=== PATIENT | male | born 1935 | race Caucasian/White ===

== ENCOUNTER 2018-03-12 11:37 | Observation (INO) | payer MEDICARE, BC ==
--- NOTE | 2018-03-12 12:48 | ED ---
Palpitations / Dysrhythmia - HPI Summary HPI Summary: An 83 y/o male presents to [facility] with a chief complaint of atrial fibrillation. The patient was at his PCP where he had an EKG done and was referred to the ED for further evaluation. He also endorses a lingering cough sometimes with phlegm and fatigue. He reports that "this is not my normal voice". He has a Hx of bronchitis. He denies Fever, Chills, Erythema (eyes), Sore throat, Chest pain , Shortness of Breath, Abdominal pain, Vomiting, Nausea, Dysuria, Hematuria, Myalgia, Edema, Rash, lightheadedness and Dizziness.The patient seems active stating that he has been skiing. - History of Current Complaint Chief Complaint: EDDysrhythmPalp Time Seen by Provider: 03/12/18 11:52 Hx Obtained From: Patient Onset/Duration: Sudden Onset Severity Initially: Mild Severity Currently: Mild Character: Irregular Aggravating: Exertion Alleviating: Nothing Associated Signs & Symptoms: Negative - SOB, Dizzy, Lightheadedness - Allergy/Home Medications Allergies/Adverse Reactions: Allergies Allergy/AdvReac Type Severity Reaction Status Date / Time No Known Allergies Allergy Verified 03/12/18 11:43 Home Medications: Home Medications Atorvastatin* [Lipitor*] 20 mg PO QPM 03/12/18 [History Confirmed 03/12/18] predniSONE TAB* [Deltasone TAB*] 5 mg PO DAILY 03/12/18 [History Confirmed 03/12] PMH/Surg Hx/FS Hx/Imm Hx Endocrine/Hematology History: Denies: Hx Diabetes, Hx Thyroid Disease Cardiovascular History: Reports: Hx Hypercholesterolemia Denies: Hx Hypertension Respiratory History: Denies: Hx Asthma, Hx Chronic Obstructive Pulmonary Disease (COPD) GI History: Denies: Hx Ulcer - Surgical History Surgery Procedure, Year, and Place: Left HIP replacement 7 years ago. Victrectomy - 12 years ago. Cataract surgery Infectious Disease History: No Infectious Disease History: Denies: Hx Clostridium Difficile, Hx Hepatitis, Hx Human Immunodeficiency Virus (HIV), Hx of Known/Suspected MRSA, Hx Shingles, Hx Tuberculosis, Hx Known/ Suspected VRE, Hx Known/Suspected VRSA, History Other Infectious Disease, Traveled Outside the [place] in Last 30 Days - Family History Known Family History: Positive: Other - cancer Negative: Hypertension, Diabetes - Social History Alcohol Use: Daily Alcohol Amount: 1 beer/glass of wine daily Substance Use Type: Reports: None Smoking Status (MU): Former Smoker Review of Systems Positive: Fatigue. Negative: Fever, Chills Negative: Erythema Negative: Sore Throat Negative: Chest Pain Positive: Cough. Negative: Shortness Of Breath Negative: Abdominal Pain, Vomiting, Nausea Negative: dysuria, hematuria Negative: Myalgia Negative: Rash Neurological: Negative - dizziness, lightheadedness All Other Systems Reviewed And Are Negative: Yes Physical Exam - Summary Physical Exam Summary: Constitutional: Well-developed, Well-nourished, Alert. (-) Distressed Skin: Warm, Dry HENT: Normocephalic; Atraumatic Eyes: Conjunctiva normal Neck: Musculoskeletal ROM normal neck. (-) JVD, (-) Stridor, (-) Tracheal deviation Cardio: Irregularly irregular HR, Heart sounds normal; Intact distal pulses; The pedal pulses are 2+ and symmetric. Radial pulses are 2+ and symmetric. (-) Murmur Pulmonary/Chest wall: Effort normal. (-) Respiratory distress, (-) Wheezes, (-) Rales Abd: Soft, (-) epigastric tenderness, (-) Distension, (-) Guarding, (-) Rebound Musculoskeletal: (-) Edema Lymph: (-) Cervical adenopathy Neuro: Alert, Oriented x3 Psych: Mood and affect Normal Triage Information Reviewed: Yes Vital Signs On Initial Exam: Initial Vitals Temp Pulse Resp BP Pulse Ox 98.3 F 136 16 156/101 96 03/12/18 11:39 03/12/18 11:39 03/12/18 11:39 03/12/18 11:39 03/12/18 11:39 Vital Signs Reviewed: Yes Diagnostics - Vital Signs Vital Signs Temp Pulse Resp BP Pulse Ox 03/12/18 12:24 102 21 144/101 97 03/12/18 12:00 104 22 96 03/12/18 11:54 101 20 145/101 96 03/12/18 11:51 104 25 97 03/12/18 11:39 98.3 F 136 16 156/101 96 - Laboratory Result Diagrams: 03/12/18 12:48 03/12/18 12:48 Lab Statement: Any lab studies that have been ordered have been reviewed, and results considered in the medical decision making process. - Radiology CXR Radiology Interpretation Completed By: Radiologist Summary of Radiographic Findings: Cardiomegaly without evidence for pulmonary edema. No evidence for pneumonia. Elevated lung volumes suggest potential obstructive lung disease. ED physician has reviewed this imaging report. - EKG 11:47 Cardiac Rate: Other Rate - Atrial flutter with predominant 3:1 AV block at 105 bpm EKG Rhythm: Atrial Flutter Summary of EKG Findings: no STEMI. 16:25 Cardiac Rate: Other Rate - Atrial Flutter at 76 bpm. EKG Rhythm: Atrial Flutter Summary of EKG Findings: Atrial flutter with predominant 4:1 AV block. Course/Dx - Course Course Of Treatment: An 83 y/o male presents to [facility] with a chief complaint of atrial fibrillation. The patient was at his PCP where he had an EKG done and was referred to the ED for further evaluation. He also endorses a lingering cough sometimes with phlegm and fatigue. He reports that "this is not my normal voice". He has a Hx of bronchitis. He denies Fever, Chills, Erythema (eyes), Sore throat, Chest pain, Shortness of Breath, Abdominal pain, Vomiting, Nausea, Dysuria, Hematuria, Myalgia, Edema, Rash, lightheadedness and Dizziness. The patient seems active stating that he has been skiing. His PE was remarkable with an irregularly irregular HR. His EKG showed Atrial flutter with predominant 3:1 AV block at 105 bpm with no STEMI. CXR impression: Cardiomegaly without evidence for pulmonary edema. No evidence for pneumonia. Elevated lung volumes suggest potential obstructive lung disease. His troponin I was remarkable at 0.12. In the ED course the patient was given aspirin PO and Metoprolol Tartrate PO. His repeat EKG showed Atrial flutter at 76 bpm with predominant 4:1 AV block. Dx: elevated troponin, rapid a-fib. Patient will be admitted to Dr. Jim, hospitalist, and is agreeable with this plan. - Diagnoses Provider Diagnoses: Elevated troponin, Rapid atrial fibrillation - Physician Notifications Discussed Care Of Patient With: Anabela Jim Time Discussed With Above Provider: 14:30 Instructed by Provider To: Admit As Observation - Critical Care Time Critical Care Time: 30-74 min - 45 mins discussing advanced directives. Discharge - Sign-Out/Discharge Documenting (check all that apply): Patient Departure - Admit - Discharge Plan Condition: Fair Disposition: ADMITTED TO [facility] - Attestation Statements Document Initiated by Scribe: Yes Documenting Scribe: Dallas Carpenter Provider For Whom Scribe is Documenting (Include Credential): Fabrice Mae MD Scribe Attestation: IDallas, scribed for Fabrice Mae MD on 03/12/18 at 2255. Status of Scribe Document: Ready
[2018-03-12 13:11] LABS: ABS Basophils 0 10^3/ul (0-0.2); ABS Eosinophils 0 10^3/ul (0-0.6); ABS Lymphocytes 1.2 10^3/ul (1.0-4.8); ABS Monocytes 0.5 10^3/ul (0-0.8); ABS Neutrophils 5.1 10^3/ul (1.5-7.7); ABS Nucleated RBC 0 10^3/ul; Eosinophil % 0.5 %; Hematocrit 40 % (42-52); Hemoglobin 13.7 g/dl (14.0-18.0); Lymphocyte % 17.2 %; Mean Corpuscular HGB Conc 34 g/dl (31-36); Mean Corpuscular Hemoglobin 33 pg (27-31); Mean Corpuscular Volume 98 fL (80-94); Mean Platelet Volume 8.7 fL (7.4-10.4); Nucleated Red Blood Cells % 0.2; Platelet Count 261 10^3/ul (150-450); Red Blood Count 4.12 10^6/ul (4.00-5.40); Red Cell Distribution Width 13 % (10.5-15); White Blood Count 6.9 10^3/ul (3.5-10.8)
[2018-03-12] MEDS ORDERED: Aspirin 81 mg CHEW TAB* 81 MG TAB.CHEW PO ONE (13:40)
[2018-03-12] MEDS ORDERED: Metoprolol Tartrate TAB* 25 MG PO ONE (13:43)
[2018-03-12] MEDS ORDERED: Acetaminophen TAB* 325 MG PO PRN (16:35)
[2018-03-12] MEDS ORDERED: Albuterol 2.5 MG/3 ML NEB.SOL* (0.083%) INH PRN (16:35)
[2018-03-12] MEDS ORDERED: Atorvastatin* 20 MG TAB PO SCH (18:00)
[2018-03-12] MEDS: Metoprolol Tartrate TAB* 25 MG PO SCH (19:46)
[2018-03-12] MEDS: Rivaroxaban TAB(*) 20 MG TAB PO SCH (19:46)
--- NOTE | 2018-03-12 23:46 | HP ---
CC: Dr. Dillard * HISTORY AND PHYSICAL: DATE OF ADMISSION: 03/12/18 PROVIDER: Deedee Monroe NP PRIMARY CARE PROVIDER: Dr. Dillard. ATTENDING PHYSICIAN: Anabela Jim DO * (dictated by Deedee Monroe NP) CHIEF COMPLAINT: Rapid atrial fibrillation. HISTORY OF PRESENT ILLNESS: Mr. Collins is an 83-year-old male with a past medical history significant for hyperlipidemia and GERD, who presented to the emergency room from his doctor's office with new onset atrial fibrillation. The patient denies any dizziness or lightheadedness. Denies any palpitations. Denies any shortness of breath at this time. The patient reports that he originally went to his primary care office today for a cough and during the visit they did an electrocardiogram and found that he was in atrial fibrillation , so they sent him to the emergency room for further evaluation. The patient reports that since the beginning of this fall, he has been experiencing shortness of breath with exertion and increased fatigue. He does report that when raking leaves, he would have to stop due to his exertional shortness of breath. He does report that he also stopped hiking up hills as he was getting short of breath with exertion when hiking hills. The patient does report that he walked approximately half a mile a day and does not have any exertional shortness of breath from walking on flat even ground. The patient denies any recent sick contacts. He denies any fever or chills. He denies any chest pain. He denies any hemoptysis. He denies any nocturnal dyspnea or orthopnea. No nausea, vomiting, or diarrhea. No abdominal pain. No hematuria or dysuria. No focal weakness or sensory loss. Given the finding of new onset atrial fibrillation, we were asked to see and evaluate him by the emergency room doctor. PAST MEDICAL HISTORY: Significant for: 1. Hyperlipidemia. 2. GERD. PAST SURGICAL HISTORY: Left hip arthroplasty. MEDICATIONS: Home medications include: 1. Ibuprofen 400 mg p.o. daily. 2. Atorvastatin 20 mg p.o. daily. 3. Omeprazole 40 mg p.o. daily. 4. ProAir 108 one puff daily. ALLERGIES TO MEDICATIONS: No known drug allergies. FAMILY HISTORY: Father with a history of an SD who at the age of 81 from an SD. No reported history of diabetes within the family. Sister with the history, age 53, from non-Hodgkin's lymphoma. SOCIAL HISTORY: The patient reports that he quit smoking approximately 35 years ago. He reports he drinks 1 to 2 drinks daily. Denies any illicit drug use. He is . Surrogate decision maker in the event he is unable to make his own decisions is his daughter, Dede Garcia. He is a full code. REVIEW OF SYSTEMS: There was no documented fever. There has been no significant weight change. No double vision. No ear discharge. No rhinorrhea. No sore throat. The patient does report a cough for approximately 2 weeks. He denies any chest pain. Denies any orthopnea. Denies any palpitations. Denies any lightheadedness or dyspnea. Denies any nocturnal dyspnea. Denies any abdominal pain, nausea, vomiting, or diarrhea. Denies any dysuria or urinary frequency. Denies any seizures or loss of consciousness. No pruritus or skin ulcerations. He denies any focal weakness or sensory losses. Review of 14 systems were completed, all others negative. PHYSICAL EXAMINATION GENERAL: At this time, Mr. Collins is an 83-year-old gentleman with the past medical history significant for hyperlipidemia and GERD, who presented to the emergency room from his primary care office with new onset rapid atrial fibrillation with rapid ventricular response. He was given metoprolol 25 mg p.o. in the emergency room and his rate decreased to the 70s and 80s, continues to be in atrial flutter at a 3:1 rate. Given his new onset atrial fibrillation , we were asked to admit him. VITAL SIGNS: Blood pressure was 135/87, heart rate was 78, respirations 18, O2 saturation 98%, temperature 98.6. HEENT: Head is atraumatic and normocephalic. Eyes: EOMs are intact. Sclerae anicteric and not pale. Oral mucosa appears to be moist. NECK: Supple. LUNGS: Clear to auscultation bilaterally. No wheezes, rales, or rhonchi. CARDIAC: S1 and S2. Irregular rate and rhythm. No murmurs, rubs, or gallops. ABDOMEN: Soft and nontender. Bowel sounds are present x4. EXTREMITIES: Pulses are +2 bilaterally. There is no edema. He is able to move all 4 extremities with 5/5 strength. NEUROLOGIC: He is awake, alert, oriented x3. Tongue is midline. Speech is clear. There are no gross focal deficits. SKIN: Intact. DIAGNOSTIC STUDIES/LAB DATA: WBCs are 6.9, RBCs 4.12, hemoglobin 13.7, hematocrit was 40, platelet count was 261,000. Sodium 137, potassium 4.2, chloride 106, carbon dioxide was 25, anion gap of 6, BUN was 18, creatinine 1.03. Glucose was 105. Lactic acid 1.3. Calcium was 9.6. Magnesium was 1.8. Total bilirubin was 1.0. ASTs 21, ALTs were 17, alkaline phosphatase was 79. Troponin initially was 0.12, repeat troponin was 0.02. TSH was 2.10. Free T4 was 0.94. He had a chest x-ray. Radiologist's impression: Cardiomegaly without evidence of pulmonary edema. No evidence of pneumonia. Elevated lung volumes suggest potential obstructive lung disease. He had an electrocardiogram on arrival which showed atrial flutter at a rate of 105. He had a repeat electrocardiogram at 1625 which showed atrial flutter at a rate of 76. ASSESSMENT AND PLAN: Mr. Collins is an 83-year-old male with the past medical history significant for hyperlipidemia and gastroesophageal reflux disease who presented to the emergency room from his doctor's office for evaluation of new onset atrial fibrillation. He will be admitted under observation for: 1. Atrial fibrillation with rapid ventricular response. He does not have an acute underlying cause. His TSH was within normal limits. He has no pneumonia on x-ray or symptoms of pneumonia at this time. His magnesium level is 1.8, it is mildly low. We will replace his magnesium. We will repeat an EKG in the morning. I will continue to monitor his troponin. We will get a transthoracic echocardiogram in the morning to rule out any valvular abnormality or structural abnormalities. I did discuss with Mr. Collins the need for anticoagulation. His KAREN-VASc score is 2 giving him a 2.9% risk of stroke which is classified as moderate to high risk. His HAS-BLED score is 2 giving him a 4.1% risk of bleeds with 1.88 bleeds per 100 which is a moderate risk of bleeding. I did discuss with the patient the need to discontinue daily alcohol intake as this could increase his risk of bleeding as well. The patient was advised of different forms of anticoagulation and has opted to be placed on Xarelto. The patient will be placed on Xarelto 20 mg p.o. daily. We will start that this evening. I would recommend that he follow up with Cardiology as an outpatient for further management of his atrial fibrillation. Given that the patient has been having increased fatigue and exertional shortness of breath, he may require cardiac stress test in the future. I also did discuss anticoagulation with his son and daughter who are in agreement with placing him on anticoagulation. Again, the patient was advised about stopping daily intake of alcohol and advised against downhill skiing due to the increased risk of fall and bleeds due to fall injury. 2. Hyperlipidemia. He will continue on his atorvastatin 20 mg p.o. daily. 3. Gastroesophageal reflux disease. He will continue on omeprazole 40 mg p.o. daily. 4. FEN. He can have a heart-healthy, no caffeine diet. 5. DVT prophylaxis. He will be placed on Xarelto. 6. Code status. He is a full code. 7. Disposition: He will be placed in observation on telemetry. TIME SPENT: Time spent on this admission was 60 minutes, greater than half that time was spent with the patient, discussing discharge plans and instructions. Greater than half of that time was spent reviewing my history and physical and implementing my plan of care. I have discussed with my attending, Dr. Anabela Jim; she is in agreement with my plan. DEEDEE MONROE, [place] [id number]/[facility] #: [id number] REGINA
[2018-03-13] MEDS ORDERED: Magnesium Sulfate 2 GM IV* 2 GM/50 ML BAG IVPB ONE (00:04)
[2018-03-13 05:46] LABS: ABS Basophils 0 10^3/ul (0-0.2); ABS Eosinophils 0.1 10^3/ul (0-0.6); ABS Monocytes 0.6 10^3/ul (0-0.8); ABS Neutrophils 2.8 10^3/ul (1.5-7.7); ABS Nucleated RBC 0 10^3/ul; Eosinophil % 1.4 %; Hematocrit 41 % (42-52); Hemoglobin 13.8 g/dl (14.0-18.0); Lymphocyte % 35.4 %; Mean Corpuscular HGB Conc 34 g/dl (31-36); Mean Corpuscular Hemoglobin 34 pg (27-31); Mean Corpuscular Volume 99 fL (80-94); Mean Platelet Volume 8.3 fL (7.4-10.4); Nucleated Red Blood Cells % 0.1; Platelet Count 257 10^3/ul (150-450); Red Blood Count 4.11 10^6/ul (4.00-5.40); Red Cell Distribution Width 13 % (10.5-15); White Blood Count 5.6 10^3/ul (3.5-10.8)
[2018-03-13 06:04] LABS: EGFR Non-African American 63.3 (>60)
[2018-03-13] MEDS ORDERED: Omeprazole CAP* 20 MG PO SCH (07:30)
[2018-03-13] MEDS: Metoprolol Tartrate TAB* 25 MG PO SCH (08:47)
[2018-03-13] MEDS: Rivaroxaban TAB(*) 20 MG TAB PO SCH (08:47)
[2018-03-13] MEDS ORDERED: Albuterol HFA INHALER* 8 gm MDI INH SCH (09:00)
--- NOTE | 2018-03-13 14:27 | ECHO ---
Patient: STEVEN LACEY [facility] Rec#: [id number] : 1935 Date: 03/13/2018 Age: 83y Height: 177.8 cm / 70.0 in Weight: 77.11 kg / 170.0 lbs Sex: M BSA: 1.95 Room#: 435 Admit Date#: 03/12/2018 Type: Inpatient Referring: Mike Bain Reading: Kenn Varela DO [employer] Designer: Mary Copeland RDCS CC: Joon Dillard MD Transthoracic Echocardiogram Indication: Shortness of breath. BP: 128/86 HR: 62 Rhythm: NSR with PACs Findings History: HLD, GERD. Technical Comments: The study quality is fair. Completed at 1230. Left Ventricle: The left ventricular chamber size is normal. Mild concentric left ventricular hypertrophy is observed. Global left ventricular wall motion and contractility are within normal limits. There is normal left ventricular systolic function. The estimated ejection fraction is 55-60%. The assessment of diastolic function is non-diagnostic. Left Atrium: The left atrium is moderately dilated. Right Ventricle: The right ventricular cavity size is normal. The right ventricular global systolic function is low normal. Right Atrium: The right atrium is mild to moderately dilated. Aortic Valve: The aortic valve is trileaflet. The aortic valve leaflets are moderately thickened. Mild aortic leaflet calcification is visualized. Systolic excursion of the aortic valve cusps is reduced. There is evidence of aortic sclerosis without stenosis. There is trace to mild aortic regurgitation. There is no evidence of aortic stenosis. Mitral Valve: Mild mitral annular calcification present. The mitral valve leaflets are mildly thickened. There is mild mitral regurgitation. There is no evidence of mitral stenosis. Tricuspid Valve: The tricuspid valve leaflets are normal. There is mild tricuspid regurgitation. No pulmonary hypertension is noted. There is no tricuspid stenosis. Pulmonic Valve: The pulmonic valve appears normal. There is a trace pulmonic regurgitation. There is no pulmonic stenosis. Pericardium: There is no significant pericardial effusion. Aorta: There is mild dilatation of the ascending aorta. There is no dilatation of the aortic arch. The aortic root is normal in size. Pulmonary Artery: The main pulmonary artery is not well visualized. Venous: The inferior vena cava appears normal in size. There is a greater than 50% respiratory change in the inferior vena cava dimension. Conclusions The left ventricular chamber size is normal. Mild concentric left ventricular hypertrophy is observed. Global left ventricular wall motion and contractility are within normal limits. There is normal left ventricular systolic function. The estimated ejection fraction is 55-60%. The left atrium is moderately dilated. The right ventricular cavity size is normal. The right ventricular global systolic function is low normal. There is evidence of aortic sclerosis and calcification without any significant stenosis by doppler evaluation There is mild dilatation of the ascending aorta. Patient appears to be in atrial flutter at time of examination None prior for comparison at time of interpretation Measurements Name Value Normal Range RVIDd (AP) 2D 3 cm (0.9 - 2.6) RVDdMajor (2D) 3.6 cm (2.2 - 4.4) RAd ISD 4CH 5.9 cm (3.4 - 4.9) RA (A4C)W 5 cm (2.9 - 4.6) IVSd (2D) 1.2 cm (0.6 - 1) LVPWd (2D) 1.2 cm (0.6 - 1) LVIDd (2D) 4 cm (3.6 - 5.4) LVIDs (2D) 2.5 cm - LV FS (2D) 24 % (25 - 45) Aortic Annulus 2.2 cm (1.4 - 2.6) Ao root diameter (2D) 3 cm (2.1 - 3.5) Ascending Ao 4 cm (2.1 - 3.4) Aortic arch 2.9 cm (1.8 - 3.4) LA dimension (AP) 2D 4.3 cm (2.3 - 3.8) LAd ISD 4CH 5.9 cm (2.9 - 5.3) LA ISD 4CH W 4.4 cm (2.5 - 4.5) Name Value Normal Range LA ESV SP 4CH (A/L) 80 ml - LA ESV SP 2CH (A/L) 81 ml - LA ESV BP (A/L) 81 ml - LA ESV BP (A/L) index 41 ml/m2 - LA ESV SP 4CH (MOD) 72 ml - LA ESV SP 2CH (MOD) 75 ml - Name Value Normal Range MV E-wave Vmax 0.77 m/sec - MV deceleration time 168 msec - MV A-wave Vmax 0.52 m/sec - MV E:A ratio 1.49 ratio - LV septal e' Vmax 0.08 m/sec - LV lateral e' Vmax 0.09 m/sec - LV E:e' septal ratio 9.63 ratio - LV E:e' lateral ratio 8.56 ratio - Name Value Normal Range AV Vmax 1.6 m/sec - AV VTI 26.76 cm - AV peak gradient 9.79 mmHg - AV mean gradient 4.61 mmHg - LVOT diameter 2 cm - LVOT Vmax 0.66 m/sec - LVOT VTI 12.9 cm - LVOT peak gradient 1.75 mmHg - LVOT mean gradient 1.03 mmHg - AR PHT 725 msec - RAHEEM Vmax 0.9 m/sec - Name Value Normal Range MR Vmax 5.1 m/sec - MR VTI 159.7 cm - MR flow (PISA) 43.6 ml/sec - MR ERO 0.09 cm2 - MR PISA radius 0.4 cm - MR alias Vmax 43.29 cm/sec - Name Value Normal Range TR Vmax 2.3 m/sec - TR peak gradient 21 mmHg - RAP 3 mmHg - RVSP 24 mmHg - IVC diameter 1.32 cm - Name Value Normal Range PV Vmax 1.05 m/sec - PV peak gradient 4.49 mmHg -
[2018-03-13 14:35] VITALS: BP 128/79
--- NOTE | 2018-03-14 14:21 | DS ---
CC: Joon Dillard MD; Rogerio Vargas MD * DISCHARGE SUMMARY: DATE OF ADMISSION: 03/12/18 DATE OF DISCHARGE: 03/13/18 PRIMARY CARE PROVIDER: Joon Dillard MD. TAKE AWAY MAN: Rogerio Vargas MD. MY ATTENDING WHILE IN THE HOSPITAL: Emily Jerez MD.* (DICTATED BY NIRU ARRINGTON) STUDIES DONE WHILE IN THE HOSPITAL: Chest x-ray from 03/12/18 read as cardiomegaly without evidence of pulmonary edema, no evidence of pneumonia, elevated lung volume/potential obstructive lung disease. Electrocardiogram from 03/12/18 shows atrial flutter, primarily 3:1 block, rate of 105, QTc of 408. Left axis deviation, incomplete right bundle-branch block. No hypertrophy or enlargement. Repeat EKG 03/12/18 shows no significant changes. Repeat EKG from 03/13/18 shows no significant changes. Transthoracic echocardiogram from 03/13/18 read as left ventricle chamber size normal, concentric left ventricular hypertrophy observed, global left ventricular wall motion and contractility are within normal limits. Normal ejection fraction and systolic function. Estimated ejection fraction is 55% to 60%. Left atrium is mildly dilated. Left ventricular cavity size normal. Right ventricular diastolic function is low normal. Evidence of aortic sclerosis and calcification without any significant stenosis by Doppler evaluation. There is mild dilatation of the ascending aorta. in atrial flutter. MEDICATIONS AT DISCHARGE: 1. Omeprazole 40 mg p.o. daily. 2. Tylenol 650 mg p.o. q.4 hours as needed. 3. Albuterol 1 puff inhalation daily. 4. Atorvastatin 20 mg p.o. daily. 5. Metoprolol tartrate 12.5 mg p.o. q.12 hours. 6. Rivaroxaban 20 mg p.o. daily. New medications at discharge: Metoprolol and Xarelto. HOSPITAL COURSE: This is a brief summary of the patient's presentation. For more details, please see the history and physical from Deedee Monroe NP, on 03/12/18. In brief, the patient is an 83-year-old male with past medical history significant for the above, who presented to the emergency department after going to his primary care doctor for persistent cough, which he describes bronchitis, which he has had previously and was found to be in rapid atrial fibrillation on exam. The patient has been having shortness of breath with exertion and increased fatigue without lower extremity edema, orthopnea, or other associated symptoms. The patient was admitted to the hospital. The patient had an elevated troponin at 0.12, which quickly normalized to 0.02. The patient had hemoglobin of 13.7. No other significant laboratory abnormalities. Normal TSH and free T4. The patient was easily rate controlled into the 80s with metoprolol tartrate b.i.d. The patient had no chest pain, shortness of breath, or dizziness. The patient had echo as above. The patient had no adverse reactions to his metoprolol. The patient's disease process and prognosis were discussed with him. Precautions for his blood pressure and for being on anticoagulation were also discussed with him. The patient understood and in agreement. The patient requested a referral to a field ring assembler, which was placed. The patient was stable and therefore discharged on 03/13/18. PHYSICAL EXAMINATION ON DAY OF DISCHARGE: General: The patient is an 83-year- old male who appears stated age , sitting comfortably in bed, in no acute distress. HEENT: Normocephalic and atraumatic. Sclerae anicteric. No conjunctival injection. Nasal mucosa moist. Oral mucosa moist. No oropharyngeal erythema, discharge, or exudate. Vital Signs: Temperature 98.1, pulse rate 82, respiratory rate 18, oxygen saturation 96% on room air, blood pressure 128/79. Neck: Supple and nontender. No lymphadenopathy. No carotid bruits auscultated. No JVD. Cardiac: Irregularly irregular rhythm. No clicks, murmurs, gallops, or rubs. Pulse 2+ in the bilateral dorsalis pedis, posterior tibialis, and radial areas. Respiratory: Clear to auscultation bilaterally. No wheezes, rales, or rhonchi. Good air exchange bilaterally. Abdomen: Soft, nontender, and nondistended. Bowel sounds present. Normoactive in all 4 quadrants. No hepatosplenomegaly. No abdominal bruits auscultated. No hepatojugular reflux. Genitourinary: No suprapubic or CVA tenderness. Skin: Clean, dry, and intact. No rash. Neuro: Cranial nerves II through XII were intact. No focal deficits. Alert and oriented x3. Psychiatric: Pleasant and cooperative. DISCHARGE PLAN: The patient will be discharged to home. The patient will be started on Xarelto and metoprolol with good rate control. The patient has been cautioned to avoid extreme exercise and any activity where trauma may be anticipated. The patient states understanding and states that he will continue to ski, but he will be careful. The patient had no signs of tachycardia induced cardiomyopathy. The patient's symptoms will likely subside with rate control. The patient should follow up with the field ring assembler to discuss possible cardioversion or rhythm control if he has persistent symptoms after adequate time of anticoagulation. The patient should follow with primary care provider within 1 week for general medical management. The patient should return to the hospital for alarming symptoms such as chest pain, severe shortness of breath, or passing out. The patient should have a heart-healthy diet without caffeine. The patient specifically has been cleared to have 1 cup decaf coffee a day. TIME SPENT: Approximately 1 hour was spent on the discharge of this patient, 40 of which was spent [id number] with the patient obtaining history and physical and discussing treatment plan. NIRU ARRINGTON [id number]/[facility] #: [id number] REGINA
== END 2018-03-13 16:20 | disposition home or self-care (01) ==
LOC: ED 11:37 → MEDTELE 16:35
PROVIDERS: ADMIT Internal Medicine; ATTEND Internal Medicine
DX: I48.92 Unspecified atrial flutter (principal); E78.5 Hyperlipidemia, unspecified; K21.9 Gastro-esophageal reflux disease without esophagitis; Z87.891 Personal history of nicotine dependence; R53.83 Other fatigue; R79.89 Other specified abnormal findings of blood chemistry; I51.7 Cardiomegaly; R05 Cough
CPT/HCPCS: 36415; 71045; 80048; 80053; 83605; 83735; 84439; 84443; 84484; 85025; 93005; 93306; 96365; 96366; 99284; A9270-GY; G0378; J3475